=== PATIENT | female | born 1975 | race Caucasian/White ===

== ENCOUNTER → 2025-04-07 | Outpatient (CLI) | payer MEDICARE, MEDICAID, SELFPAY ==
--- NOTE | 2025-04-07 08:00 | XR_ITS ---
Examination: Abdomen sonogram, complete Date and time of exam: April 07, 2025, 0816 hours INDICATIONS: Abdominal pain months. Technique: Multiple real-time grayscale transabdominal sonographic images of the abdomen have been obtained. Findings: Normal common bile duct Absent gallbladder Aorta not enlarged Pancreatic head 2.9 cm Liver 19.0 cm fatty infiltration Normal hepatopetal portal venous flow Patent IVC Right kidney 11.3 cm and the cortex 1.7 cm 9 mm mid pole calculus Left kidney 12.9 cm renal cortex 2.2 cm Mild renal scar formation Spleen 11.2 cm IMPRESSION: Normal common bile duct Moderate hepatomegaly fatty infiltration 9 mm nonobstructing right renal calculus
== END | disposition home or self-care (01) ==
LOC: CDIM 08:03
PROVIDERS: PCP Family Medicine; Referring Provider Nurse Practitioner Family; Visit Provider Nurse Practitioner Family
DX: K76.0 Fatty (change of) liver, not elsewhere classified (principal); N20.0 Calculus of kidney
CPT/HCPCS: 76700